=== PATIENT | male | born 1960 | race Hispanic/Latino ===

== ENCOUNTER 2021-12-06 20:38 | Observation (INO) | payer BC ==
[2021-12-06] MEDS ORDERED: Aspirin 325 MG TAB ONE (20:54)
[2021-12-06 21:03] LABS: #Basophils 0.1 thou/uL (0.0-0.2); #Eosinphils 0.2 thou/uL (0.0-0.7); #Lymphocytes 2.5 thou/uL (1.20-3.40); #Monocytes 1.3 thou/uL (0.11-0.59); #Neutrophils 6.8 thou/uL (1.40-6.50); %Basophils 0.6 % (0.0-1.0); %Lymphocytes 22.8 % (21.0-51.0); %Neutrophils 62.6 % (42.0-75.0); Hemoglobin 15.7 g/dL (14.0-18.0); Mean Corpuscular HGB CONC 34.5 g/dL (32.0-36.0); Mean Corpuscular Hemoglobin 33.2 pg (27.0-31.0); Mean Corpuscular Volume 96.3 fL (78.0-98.0); Mean Platelet Volume 7.6 fL (7.4-10.4); Platelet Count 246 thou/uL (130-400); RBC Distribution Width 11.7 % (11.5-14.5); Red Blood Cell (RBC) Count 4.72 mill/uL (4.70-6.10); White Blood Cell (WBC) Count 10.8 thou/uL (4.8-10.8)
[2021-12-06 21:22] LABS: ALT (SGPT) 23 U/L (8-55); AST (SGOT) 18 U/L (5-34); Albumin 4.3 g/dL (3.4-4.8); Alkaline Phosphatase 82 U/L (40-110); Anion Gap 14 mmol/L (10-20); BUN (Urea Nitrogen) 20 mg/dL (8.4-25.7); Bilirubin, Total 0.5 mg/dL (0.2-1.2); Calc. Creatinine Clearance 0 mL/min (70-130); Calcium 9.3 mg/dL (7.8-10.44); Carbon Dioxide 26 mmol/L (23-31); Chloride 105 mmol/L (98-107); Globulin 2.5 g/dL (2.4-3.5); Glucose 83 mg/dL (80-115); Potassium 3.9 mmol/L (3.5-5.1); Protein, Total 6.8 g/dL (5.8-8.1); Sodium 141 mmol/L (136-145)
[2021-12-06] MEDS ORDERED: Nitroglycerin 0.4 MG TAB 1 EACH ONE (22:09)
[2021-12-06] MEDS ORDERED: HYDROcodone/Acetaminophen 7.5/325 mg Tablet PO PRN (22:34)
[2021-12-06] MEDS ORDERED: Zolpidem Tartrate 5 MG TAB PO PRN (22:34)
[2021-12-06] MEDS ORDERED: Acetaminophen 325 MG TAB PO PRN (22:34)
[2021-12-06] MEDS ORDERED: Bisacodyl 5 MG TAB PO PRN (22:34)
[2021-12-06] MEDS ORDERED: Ondansetron PF 4 MG/2 ML Vial IVP PRN (22:34)
[2021-12-06] MEDS ORDERED: Nitroglycerin 4.9 GM Bottle SL PRN (22:35)
[2021-12-06] MEDS ORDERED: Morphine 2 MG/ML VIAL SLOW IVP PRN (22:35)
[2021-12-06] MEDS ORDERED: Nitroglycerin 0.4mg/Hour PATCH TD SCH (22:51)
[2021-12-07 00:30] LABS: Troponin I Less than 0.010 ng/mL (< 0.028)
[2021-12-07] MEDS: Sodium Chloride 0.9% 1,000 ML IV SCH ×4 (00:51→23:56)
[2021-12-07 01:05] VITALS: BMI 28.7
[2021-12-07 01:21] LABS: Creatinine, Urine 151.19 mg/dL (63-166)
[2021-12-07 02:32] LABS: #Eosinphils 0.2 thou/uL (0.0-0.7); #Lymphocytes 1.5 thou/uL (1.20-3.40); #Monocytes 0.7 thou/uL (0.11-0.59); #Neutrophils 5.3 thou/uL (1.40-6.50); %Basophils 0.5 % (0.0-1.0); %Eosinophils 2.6 % (0.0-10.0); %Lymphocytes 19.2 % (21.0-51.0); %Monocytes 9.4 % (0.0-10.0); %Neutrophils 68.2 % (42.0-75.0); Hemoglobin 14.9 g/dL (14.0-18.0); Mean Corpuscular HGB CONC 35.2 g/dL (32.0-36.0); Mean Corpuscular Hemoglobin 34.1 pg (27.0-31.0); Mean Corpuscular Volume 96.9 fL (78.0-98.0); Mean Platelet Volume 7.6 fL (7.4-10.4); Platelet Count 205 thou/uL (130-400); RBC Distribution Width 11.6 % (11.5-14.5); Red Blood Cell (RBC) Count 4.38 mill/uL (4.70-6.10); White Blood Cell (WBC) Count 7.7 thou/uL (4.8-10.8)
[2021-12-07 03:10] LABS: ALT (SGPT) 20 U/L (8-55); AST (SGOT) 15 U/L (5-34); Albumin 3.9 g/dL (3.4-4.8); Alkaline Phosphatase 75 U/L (40-110); Anion Gap 12 mmol/L (10-20); BUN (Urea Nitrogen) 20 mg/dL (8.4-25.7); Bilirubin, Total 0.4 mg/dL (0.2-1.2); Calc. Creatinine Clearance 58 mL/min (70-130); Calcium 8.9 mg/dL (7.8-10.44); Carbon Dioxide 28 mmol/L (23-31); Cardiac Risk 4.1 (Less than 4.5); Chloride 106 mmol/L (98-107); Cholesterol 164 mg/dl (< 200 Desired); Globulin 2.4 g/dL (2.4-3.5); Glucose 121 mg/dL (80-115); HDL Cholesterol 40 mg/dL (>60 Neg Risk); LDL Cholesterol, Calculated 104 mg/dL; Potassium 3.9 mmol/L (3.5-5.1); Protein, Total 6.3 g/dL (5.8-8.1); Sodium 142 mmol/L (136-145); Triglycerides 101 mg/dL (Less than 150)
[2021-12-07 03:12] LABS: Troponin I Less than 0.010 ng/mL (< 0.028)
[2021-12-07 07:17] LABS: Bacteria/HPF None Seen HPF (None Seen); Bilirubin Negative (Negative); Blood, Urine Negative (Negative); Clarity Clear (Clear); Glucose, Urine (Dipstick) Normal (Negative); Ketone, Urine 10 mg/dL (Negative); Leukocyte Negative Leu/uL (Negative); Nitrite Negative (Negative); Protein, Urine (Dipstick) Negative (Neg-Trace); RBC/HPF 0-3 HPF (0-3); Specific Gravity, Urine 1.019 (1.002-1.036); Squamous Epithelial None Seen HPF (0-3); Urobilinogen Normal mg/dL (Less than 2); WBC/HPF 0-3 HPF (0-3); pH, Urine 5.5 (5.0-9.0)
[2021-12-07 07:21] LABS: Urine Culture Reflex No No
[2021-12-07] MEDS: Aspirin 81 mg Enteric Coated Tablet PO SCH (08:27)
[2021-12-07] MEDS: Famotidine 20 MG TAB PO SCH (08:28)
[2021-12-07] MEDS: Amlodipine 5 MG TAB PO SCH ×2 (08:31→20:07)
[2021-12-07] MEDS ORDERED: Enoxaparin Sodium 40 MG/0.4 ML SYRINGE SC SCH (09:00)
[2021-12-07] MEDS ORDERED: Clopidogrel Bisulfate 75 MG TAB PO SCH (09:00)
[2021-12-07] MEDS ORDERED: Nitroglycerin 0.4mg/Hour PATCH TD SCH (09:00)
[2021-12-07] MEDS ORDERED: ADENOSINE 60 MG/20 ML VIAL ONE (13:56)
[2021-12-07 15:13] LABS: Hemoglobin A1c 4.9 % (4.0-6.0)
[2021-12-07] MEDS ORDERED: Atorvastatin Calcium 40 MG TAB PO SCH ×2 (21:00)
[2021-12-08 05:57] LABS: Anion Gap 11 mmol/L (10-20); BUN (Urea Nitrogen) 17 mg/dL (8.4-25.7); Calc. Creatinine Clearance 74 mL/min (70-130); Calcium 8.5 mg/dL (7.8-10.44); Carbon Dioxide 21 mmol/L (23-31); Chloride 111 mmol/L (98-107); Glucose 97 mg/dL (80-115); Potassium 4.1 mmol/L (3.5-5.1); Sodium 139 mmol/L (136-145)
[2021-12-08 07:32] VITALS: BP 118/80; TEMP 97.4
[2021-12-08] MEDS: Aspirin 81 mg Enteric Coated Tablet PO SCH (09:16)
[2021-12-08] MEDS: Famotidine 20 MG TAB PO SCH (09:16)
== END 2021-12-08 10:13 | disposition home or self-care (01) ==
LOC: ERS 20:38 → 2SW 22:17
PROVIDERS: ADMIT Internal Medicine; ATTEND Internal Medicine
DX: R07.89 Other chest pain (principal); I12.9 Hypertensive chronic kidney disease with stage 1 through stage 4 chronic kidney disease, or unspecified chronic kidney disease; N18.2 Chronic kidney disease, stage 2 (mild); N17.9 Acute kidney failure, unspecified; E78.5 Hyperlipidemia, unspecified; E87.2 Acidosis; Z87.891 Personal history of nicotine dependence; Z79.899 Other long term (current) drug therapy; Z20.822 Contact with and (suspected) exposure to COVID-19
CPT/HCPCS: 36415; 71045; 76770; 78452; 80048; 80053; 80061; 81001; 82570; 83036; 83880; 84156; 84300; 84443; 84484; 85025; 93005; 93017; 93306; G0378; J0153; J7050; U0003; U0005

== ENCOUNTER 2025-06-14 14:19 | Outpatient (CLI) | payer OTHER ==
[2025-06-14 15:34] LABS: #Basophils 0.04 10x3/uL (0.0-0.2); #Eosinophils 0.16 10x3/uL (0.0-0.7); #Monocytes 0.82 10x3/uL (0.11-0.59); #Neutrophils 7.07 10x3/uL (1.40-6.50); %Basophils 0.4 % (0.0-1.0); %Eosinophils 1.7 % (0.0-10.0); %Lymphocytes 15.1 % (21.0-51.0); %Monocytes 8.6 % (0.0-10.0); %Neutrophils 74.0 % (42.0-75.0); Hematocrit 46.9 % (42.0-52.0); Hemoglobin 16.1 g/dL (14.0-18.0); Mean Corpuscular Hemoglobin 32.1 pg (27.0-31.0); Mean Corpuscular Volume 93.4 fL (78.0-98.0); Platelet Count 238 10x3/uL (130-400); Red Blood Cell (RBC) Count 5.02 mill/uL (4.70-6.10); White Blood Cell (WBC) Count 9.55 10x3/uL (4.8-10.8)
[2025-06-14 15:52] LABS: Anion Gap 13 mmol/L (10-20); BUN (Urea Nitrogen) 13 mg/dL (8.4-25.7); Calc. Creatinine Clearance 0 mL/min (70-130); Calcium 9.3 mg/dL (7.8-10.44); Carbon Dioxide 24 mmol/L (23-31); Chloride 105 mmol/L (98-107); Glucose 104 mg/dL (80-115); Potassium 3.9 mmol/L (3.5-5.1); Sodium 138 mmol/L (136-145)
[2025-06-14 16:01] LABS: Bacteria/HPF None Seen HPF (None Seen); Glucose, Urine (Dipstick) Normal (Negative); Leukocyte Negative Leu/uL (Negative); PTT 24.8 sec (22.9-36.1); Protein, Urine (Dipstick) Negative (Neg-Trace); RBC/HPF 0-3 HPF (0-3); Specific Gravity, Urine 1.012 (1.002-1.036); WBC/HPF 0-3 HPF (0-3)
[2025-06-14 16:02] LABS: INR-International Normal Ratio 1.1; Prothrombin Time 14.0 sec (12.0-14.7)
== END 2025-06-14 14:20 | disposition home or self-care (01) ==
LOC: LABBT 14:19
PROVIDERS: ATTEND Urology
DX: Z01.818 Encounter for other preprocedural examination (principal); N40.1 Benign prostatic hyperplasia with lower urinary tract symptoms
CPT/HCPCS: 80048; 81001; 85025; 85610; 85730; 87086; 93005; 93010